=== PATIENT | female | born 1960 | race Caucasian/White ===

== ENCOUNTER 2016-06-10 12:00 | Emergency (ER) | payer BC ==
[2016-06-10] MEDS ORDERED: CLINDAMYCIN 600 MG/4 ML VIAL ONE (13:33)
== END 2016-06-10 14:18 | disposition home or self-care (01) ==
LOC: ER 12:00
DX: J01.00 Acute maxillary sinusitis, unspecified (principal); J01.10 Acute frontal sinusitis, unspecified; L03.211 Cellulitis of face; I10 Essential (primary) hypertension; F17.200 Nicotine dependence, unspecified, uncomplicated
CPT/HCPCS: 96372